=== PATIENT | female | born 1950 | race African-American/Black ===

== ENCOUNTER 2024-09-20 13:04 | Inpatient (IN) | payer MEDICARE ==
[~2024-09-20] VITALS: Ht 160 cm; Wt 88.5 kg
[2024-09-20] VITALS (7 sets, daily range): BP systolic 142–175; BP diastolic 58–81; PULSE 59–83; RESP 17–19; TEMP 97.6–98.4; O2SAT 97–100
[2024-09-20] MEDS ORDERED: SODIUM CHLORIDE FLUSH 10 ML SYR IV PRN (13:30)
[2024-09-20 14:04] LABS: BASOPHILS % 0.5 % (0.0-1.0); EOSINOPHILS % 1.5 % (0.0-6.0); LYMPHOCYTES % 41.0 % (18.0-39.1); MONOCYTES % 9.9 % (4.4-11.3); NEUTROPHILS % 46.9 % (38.7-80.0); RED CELL DISTRIBUTION WIDTH 12.9 % (11.7-14.4)
[2024-09-20 14:33] LABS: EST GLOMERULAR FILTRATION RATE 91 ML/MIN (>=60)
[2024-09-20] MEDS ORDERED: SODIUM CHLORIDE FLUSH 10 ML SYR INJ PRN (15:00)
[2024-09-20] MEDS: HYDRALAZINE HCL 20 MG/ML VIAL IV STA (15:17)
[2024-09-20] MEDS: ASPIRIN 81 MG CHEW TAB PO ONE (15:17)
[2024-09-20] MEDS ORDERED: HYDRALAZINE HCL 20 MG/ML VIAL IV PRN (15:30)
[2024-09-20] MEDS ORDERED: ACETAMINOPHEN 325 MG TAB PO PRN (15:30)
[2024-09-20] MEDS ORDERED: DIPHENHYDRAMINE HCL 25 MG CAP PO PRN (15:30)
[2024-09-20] MEDS ORDERED: ALBUTEROL/IPRATROPIUM 3 ML NEB NEB PRN (15:30)
[2024-09-20] MEDS ORDERED: POTASSIUM CHLORIDE 20 MEQ TAB CR PO PRN (15:30)
[2024-09-20] MEDS ORDERED: BENZONATATE 100 MG CAP PO PRN (15:30)
[2024-09-20] MEDS ORDERED: LIDOCAINE 4% PATCH TP PRN (15:30)
[2024-09-20] MEDS ORDERED: DOCUSATE SODIUM 100 MG CAP PO PRN (15:30)
[2024-09-20] MEDS ORDERED: HYDROCODONE/APAP 5MG-325MG TAB PO PRN (15:30)
[2024-09-20] MEDS ORDERED: SIMETHICONE 80 MG CHEW PO PRN (15:30)
[2024-09-20] MEDS ORDERED: DEXTROSE 50% SYRINGE 50 ML IV PRN (15:30)
[2024-09-20] MEDS: NIFEDIPINE CR 30 MG TAB PO SCH (16:38)
[2024-09-20] MEDS: ENOXAPARIN SOD INJ 40 MG/0.4 ML SYR SC SCH (16:38)
[2024-09-20] MEDS ORDERED: MELATONIN 5 MG TABLET PO PRN (21:00)
[2024-09-20] MEDS: ATORVASTATIN 20 MG TAB PO SCH (22:26)
[2024-09-20] MEDS ORDERED: AMLODIPINE BESY10 MG PO (22:34)
[2024-09-20] MEDS ORDERED: ISOSORBIDE MONO30 MG PO (22:34)
[2024-09-20] MEDS ORDERED: ASPIRIN81 MG PO (22:34)
[2024-09-20] MEDS ORDERED: ATORVASTATIN CA10 MG PO (22:34)
[2024-09-20] MEDS ORDERED: TRAZODONE HCL100 MG PO (22:34)
[2024-09-20] MEDS ORDERED: SPIRONOLACTONE25 MG PO (22:34)
[2024-09-20] MEDS ORDERED: METOPROLOL TART25 MG PO (22:34)
[2024-09-20] MEDS ORDERED: NEURONTIN100 MG PO (22:34)
[2024-09-20] MEDS ORDERED: MELOXICAM7.5 MG PO (22:34)
[2024-09-21] VITALS (9 sets, daily range): BP systolic 119–170; BP diastolic 63–81; PULSE 62–69; RESP 16–20; TEMP 97.7–98.4; O2SAT 97–100
[2024-09-21 06:32] LABS: BASOPHILS % 0.5 % (0.0-1.0); EOSINOPHILS % 2.0 % (0.0-6.0); LYMPHOCYTES % 48.6 % (18.0-39.1); MONOCYTES % 8.8 % (4.4-11.3); NEUTROPHILS % 40.1 % (38.7-80.0); RED CELL DISTRIBUTION WIDTH 13.2 % (11.7-14.4)
[2024-09-21 07:12] LABS: EST GLOMERULAR FILTRATION RATE 89.0 ML/MIN (>=60)
[2024-09-21 07:31] LABS: CHOL/HDL RATIO 4.9 (3.0-3.6); LDL CHOLESTEROL 170.0 MG/DL (60-130)
[2024-09-21] MEDS: ASPIRIN 325 MG TAB EC PO SCH (08:44)
[2024-09-21] MEDS: PANTOPRAZOLE SOD 40 MG TABEC PO SCH (08:44)
[2024-09-21] MEDS ORDERED: ATORVASTATIN 10 MG TAB PO SCH (21:00)
[2024-09-21] MEDS: GABAPENTIN 100 MG CAP PO SCH (21:06)
[2024-09-21] MEDS: TRAZODONE HCL 50 MG TAB PO SCH (21:06)
[2024-09-22] MEDS: ONDANSETRON HCL INJ 2MG/ML 2ML 2 MG/ML VIAL IV PRN (00:44)
[2024-09-22 03:39] VITALS: BP 126/63; PULSE 62; RESP 18; TEMP 97.6; O2SAT 100
[2024-09-22 07:06] VITALS: PULSE 75; RESP 20; O2SAT 95
[2024-09-22] MEDS: ASPIRIN 81 MG ENTERIC COATED PO SCH (08:11)
[2024-09-22] MEDS: ISOSORBIDE MONONITRATE 30 MG TAB CR PO SCH (08:11)
[2024-09-22] MEDS: AMLODIPINE BESYLATE 10 MG TAB PO SCH (08:12)
[2024-09-22 08:26] VITALS: BP 147/65; PULSE 64; RESP 18; TEMP 97.9; O2SAT 100
[2024-09-22] MEDS ORDERED: ASPIRIN 81 MG CHEW TAB PO SCH (09:00)
[2024-09-22 09:46] VITALS: BP 147/65; PULSE 64; RESP 18; TEMP 97.4; O2SAT 100
[2024-09-22] MEDS ORDERED: REGADENOSON 0.4 MG/5 ML SYR IV ONE (12:07)
[2024-09-22] MEDS ORDERED: LIPITOR20 MG PO (16:01)
[2024-09-22] MEDS ORDERED: ATORVASTATIN 40 MG TAB PO SCH (21:00)
== END 2024-09-22 18:30 | disposition home or self-care (01) | DRG 313 ==
LOC: ER 13:26 → ERHOLD 14:53 → MED/SURG3 17:33 → OBSVTOIN 09-22 13:15
PROVIDERS: ADMIT Internal Medicine; ATTEND Internal Medicine
DX: R07.9 Chest pain, unspecified (principal); E78.5 Hyperlipidemia, unspecified; M19.90 Unspecified osteoarthritis, unspecified site; M06.9 Rheumatoid arthritis, unspecified; E66.01 Morbid (severe) obesity due to excess calories; I11.0 Hypertensive heart disease with heart failure; I50.9 Heart failure, unspecified; R00.1 Bradycardia, unspecified; M81.0 Age-related osteoporosis without current pathological fracture; Z88.8 Allergy status to other drugs, medicaments and biological substances; Z86.73 Personal history of transient ischemic attack (TIA), and cerebral infarction without residual deficits; Z79.82 Long term (current) use of aspirin; Z83.3 Family history of diabetes mellitus; Z82.49 Family history of ischemic heart disease and other diseases of the circulatory system; Z68.34 Body mass index [BMI] 34.0-34.9, adult
CPT/HCPCS: 36415; 71045; 78452; 80053; 80061; 82550; 83036; 83735; 84443; 84484; 85025; 93005; 93017; 94799; 99284; A9502; G0378; J0360; J1650; J2405; J2470